=== PATIENT | female | born 1995 | race African-American/Black ===

== ENCOUNTER 2023-10-08 09:56 | Outpatient (CLI) | payer BC, SELFPAY ==
--- NOTE | ~2023-10-08 | XR_ITS ---
Right Shoulder Technique: AP and scapular Y views were obtained. Clinical History: Pain Findings: No fracture or dislocation is seen. Osseous alignment is anatomic. The glenohumeral and acr omioclavicular joint spaces are preserved. Soft tissues are unremarkable. Impression: Unremarkable right shoulder radiographs. Reviewed, dictated and finalized at [facility]. F [employer]EARCH ASSOCIATE Impression: Unremarkable right shoulder radiographs.
== END 2023-10-08 09:57 | disposition home or self-care (01) ==
PROVIDERS: PCP Emergency Medicine; Visit Provider Emergency Medicine
DX: M25.511 Pain in right shoulder (principal)
CPT/HCPCS: 73030